=== PATIENT | male | born 1940 | race Caucasian/White ===

== ENCOUNTER 2023-08-25 10:10 | Inpatient (IN) ==
[2023-08-25] MEDS ORDERED: 0.9 % SODIUM CHLORIDE 1,000 ML IV ONE (10:26)
[2023-08-25] MEDS ORDERED: KETOROLAC 15 MG/ML VIAL IV ONE (10:26)
[2023-08-25] MEDS ORDERED: ACETAMINOPHEN 1,000 MG/100 ML BAG IV ONE (10:26)
[2023-08-25] MEDS ORDERED: AZITHROMYCIN 500 MG in DEXTROSE 5% IN WATER 250 ML IV ONE (10:44)
[2023-08-25] MEDS ORDERED: cefTRIAXone 1 GM VIAL IV ONE (10:44)
[2023-08-25] MEDS ORDERED: 0.9 % SODIUM CHLORIDE 1,000 ML IV SCH (15:26)
[2023-08-25] MEDS ORDERED: IPRATROPIUM/ALBUTEROL 3 ML AMPUL.NEB NEB PRN (15:26)
[2023-08-25] MEDS ORDERED: POTASSIUM CHLORIDE 40 MEQ in DEXTROSE 5% IN WATER 500 ML IV PRN (15:26)
[2023-08-25] MEDS ORDERED: POTASSIUM CHLORIDE 20 MEQ TABLET PO PRN ×2 (15:26)
[2023-08-25] MEDS ORDERED: POLYETHYLENE GLYCOL 3350 17 GM PACKET PO PRN (15:26)
[2023-08-25] MEDS ORDERED: ACETAMINOPHEN 325 MG TABLET PO PRN (15:26)
[2023-08-25] MEDS ORDERED: MAGNESIUM SULFATE 2 GM/50 ML BAG IV PRN (15:26)
[2023-08-25] MEDS ORDERED: SENNOSIDES 1 TABLET PO PRN (15:26)
[2023-08-25] MEDS ORDERED: ONDANSETRON 4 MG/2 ML VIAL IV PRN (15:26)
[2023-08-25] MEDS: 0.9 % SODIUM CHLORIDE 10 ML SYRINGE IV SCH (20:05)
[2023-08-25] MEDS: DOCUSATE SODIUM 100 MG CAPSULE PO SCH (20:05)
[2023-08-26] MEDS: 0.9 % SODIUM CHLORIDE 10 ML SYRINGE IV SCH ×3 (05:46→20:10)
[2023-08-26 06:55] LABS: Basophils # (Auto) 0.03 K/mcL (0.00-0.30); Basophils % (Auto) 0.3 % (0.0-2.0); Eosinophils # (Auto) 0.12 K/mcL (0.00-0.70); Eosinophils % (Auto) 1.1 % (0.0-7.0); Hematocrit 41.2 % (40.1-51.0); Hemoglobin 13.2 g/dL (13.7-17.5); Lymphocytes # (Auto) 1.05 K/mcL (1.50-4.80); Lymphocytes % (Auto) 9.8 % (15.5-49.0); Mean Cell Volume 95.8 fL (80.0-100.0); Mean Platelet Volume 10.8 fL (8.8-12.5); Monocytes # (Auto) 0.56 K/mcL (0.10-0.90); Monocytes % (Auto) 5.2 % (1.0-12.0); Neutrophils % (Auto) 83.1 % (38.0-78.0); Platelet Count 150 K/mcL (140-440); Red Cell Distribution Width 15.5 % (11.5-14.5); WBC 10.7 K/mcL (4.5-11.0)
[2023-08-26 07:18] LABS: ALT/SGPT 12 U/L (<40); AST/SGOT 13 U/L (<40); Albumin 2.9 gm/dL (3.2-5.2); Alkaline Phosphatase 75 U/L (39-117); Bilirubin,Direct 0.2 mg/dL (<0.3); Bilirubin,Total 0.9 mg/dL (0.1-1.0); Blood Urea Nitrogen 21 mg/dL (8-23); Calcium 8.1 mg/dL (8.6-10.4); Carbon Dioxide 25 mmol/L (22-30); Chloride 106 mmol/L (96-108); Globulin 2.8 gm/dL (2.2-3.7); Glomerular Filtration Rate 63; Glucose 115 mg/dL (70-105); Lactate Dehydrogenase 270 U/L (135-225); Phosphorous 2.5 mg/dL (2.5-4.5); Triglycerides 73 mg/dL (<150); Uric Acid 5.7 mg/dL (2.5-8.0)
[2023-08-26] MEDS ORDERED: cefTRIAXone 2 GM VIAL ONE (08:04)
[2023-08-26] MEDS: OMEPRAZOLE 20 MG CAPSULE PO SCH (08:12)
[2023-08-26] MEDS: FLECAINIDE 50 MG TABLET PO SCH ×2 (08:12→20:09)
[2023-08-26] MEDS: METOPROLOL TARTRATE 50 MG TABLET PO SCH ×2 (08:12→20:09)
[2023-08-26] MEDS: DOCUSATE SODIUM 100 MG CAPSULE PO SCH ×2 (08:12→20:09)
[2023-08-26] MEDS: ESCITALOPRAM 10 MG TABLET PO SCH (08:12)
[2023-08-26] MEDS: APIXABAN 5 MG TABLET PO SCH ×2 (08:12→20:09)
[2023-08-26] MEDS: cefTRIAXone 2 GM in DEXTROSE 5% IN WATER 50 ML IV SCH (08:12)
[2023-08-26] MEDS: AZITHROMYCIN 500 MG in DEXTROSE 5% IN WATER 250 ML IV SCH (09:06)
[2023-08-27] MEDS: 0.9 % SODIUM CHLORIDE 10 ML SYRINGE IV SCH ×3 (06:02→20:27)
[2023-08-27] MEDS: DOCUSATE SODIUM 100 MG CAPSULE PO SCH ×2 (07:58→20:27)
[2023-08-27] MEDS: FLECAINIDE 50 MG TABLET PO SCH ×2 (07:58→20:27)
[2023-08-27] MEDS: APIXABAN 5 MG TABLET PO SCH ×2 (07:58→20:27)
[2023-08-27] MEDS: OMEPRAZOLE 20 MG CAPSULE PO SCH (07:58)
[2023-08-27] MEDS: METOPROLOL TARTRATE 50 MG TABLET PO SCH ×2 (07:58→20:27)
[2023-08-27] MEDS: ESCITALOPRAM 10 MG TABLET PO SCH (07:58)
[2023-08-27] MEDS: cefTRIAXone 2 GM in DEXTROSE 5% IN WATER 50 ML IV SCH (09:45)
[2023-08-27] MEDS: AZITHROMYCIN 500 MG in DEXTROSE 5% IN WATER 250 ML IV SCH (10:25)
[2023-08-27 10:29] LABS: Blood Urea Nitrogen 14 mg/dL (8-23); Calcium 8.7 mg/dL (8.6-10.4); Carbon Dioxide 27 mmol/L (22-30); Chloride 104 mmol/L (96-108); Glomerular Filtration Rate 84; Glucose 168 mg/dL (70-105); Phosphorous 2.4 mg/dL (2.5-4.5)
[2023-08-27] MEDS: FUROSEMIDE 20 MG/2 ML VIAL IV SCH (15:26)
[2023-08-28] MEDS: 0.9 % SODIUM CHLORIDE 10 ML SYRINGE IV SCH (05:50)
[2023-08-28] MEDS: cefTRIAXone 2 GM in DEXTROSE 5% IN WATER 50 ML IV SCH (09:00)
[2023-08-28] MEDS: FUROSEMIDE 20 MG/2 ML VIAL IV SCH (09:01)
[2023-08-28] MEDS: METOPROLOL TARTRATE 50 MG TABLET PO SCH (09:01)
[2023-08-28] MEDS: FLECAINIDE 50 MG TABLET PO SCH (09:01)
[2023-08-28] MEDS: APIXABAN 5 MG TABLET PO SCH (09:01)
[2023-08-28] MEDS: OMEPRAZOLE 20 MG CAPSULE PO SCH (09:01)
[2023-08-28] MEDS: ESCITALOPRAM 10 MG TABLET PO SCH (09:01)
[2023-08-28] MEDS: DOCUSATE SODIUM 100 MG CAPSULE PO SCH (09:01)
== END 2023-08-28 13:49 | disposition home or self-care (01) ==
LOC: ED 10:10 → MEDSUR 15:08
PROVIDERS: ADMIT Internal Medicine; ATTEND Internal Medicine